=== PATIENT | female | born 1955 | race Two or more races ===

== ENCOUNTER 2019-09-07 17:48 | Emergency (ER) | payer OTHER ==
[~2019-09-07] VITALS: Ht 162.6 cm; Wt 52.6 kg
[2019-09-07 18:57] LABS: BASOPHILS # (AUTO) 0.04 x10^3/uL (0-0.1); BASOPHILS % (AUTO) 1 % (0-1); EOSINOPHILS % (AUTO) 6 % (1-7); LYMPHOCYTES # (AUTO) 1.82 x10^3/uL (1-3.4); LYMPHOCYTES % (AUTO) 34 % (22-44); MD NO; MEAN CORPUSCULAR HEMOGLOBIN 31.2 pg (27.0-34.8); MEAN CORPUSCULAR HGB CONC 33.2 g/dL (32.4-35.8); MEAN CORPUSCULAR VOLUME 93.8 fL (80-100); MEAN PLATELET VOLUME 7.2 fL (7.4-10.4); MONOCYTES # (AUTO) 0.41 x10^3/uL (0.2-0.8); MONOCYTES % (AUTO) 8 % (2-9); NEUTROPHILS # (AUTO) 2.87 x10^3/uL (1.8-6.8); NEUTROPHILS % (AUTO) 53 % (42-75); PLATELET COUNT 292 x10^3/uL (130-400); RED BLOOD COUNT 3.93 x10^6/uL (3.82-5.3); RED CELL DISTRIBUTION WIDTH 12.7 % (9.6-15.2)
[2019-09-07 18:58] LABS: ALBUMIN 3.4 g/dL (3.4-5.0); ANION GAP 6 mmol/L (5-15); CALCIUM 8.7 mg/dL (8.5-10.1); CHLORIDE 98 mmol/L (98-107); CREATININE 0.63 mg/dL (0.55-1.02)
--- NOTE | 2019-09-07 19:00 | NUR ---
to ct scan
[2019-09-07] MEDS ORDERED: SODIUM CHLORIDE 0.9% 1,000ML IVBOLUS ONE (20:00)
[2019-09-07] MEDS ORDERED: SODIUM CHLORIDE FLUSH 10ML SYR IVF ONE (20:00)
[2019-09-07 20:33] VITALS: BP 143/46
--- NOTE | 2019-09-07 20:34 | NUR ---
1l ns complete Patient remains with neck pain VSS on hall monitor Provider made aware
[2019-09-07] MEDS ORDERED: IBUPROFEN 200 MG TABLET ONE (20:59)
[2019-09-07] MEDS ORDERED: IBUPROFEN 200 MG TABLET PO ONE (21:00)
== END 2019-09-07 21:21 | disposition home or self-care (01) ==
LOC: ED 19:28
DX: E87.1 Hypo-osmolality and hyponatremia (principal); M54.2 Cervicalgia; E11.9 Type 2 diabetes mellitus without complications
CPT/HCPCS: 36415; 70450; 80048; 82040; 85025; 99284; J7030

== ENCOUNTER 2020-10-02 08:01 | Emergency (ER) | payer OTHER ==
[~2020-10-02] VITALS: Ht 154.9 cm; Wt 51.9 kg
--- NOTE | 2020-10-02 08:34 | NUR ---
pa at bs for eval
--- NOTE | 2020-10-02 08:54 | NUR ---
PIV PLACED, LABS DRAWN, FLUIDS HUNG. PT RESTING ON GURNEY, NADN/VSS. CALL LIGHT WITHIN REACH. BED IN LOWEST POSITION, BED RAILS UP X2
[2020-10-02] MEDS ORDERED: SODIUM CHLORIDE 0.9% 1,000ML IVBOLUS ONE (09:00)
[2020-10-02 09:09] LABS: BASOPHILS % (AUTO) 1 % (0-1); EOSINOPHILS % (AUTO) 1 % (1-7); LYMPHOCYTES % (AUTO) 30 % (22-44); MEAN CORPUSCULAR HEMOGLOBIN 30.8 pg (27.0-34.8); MEAN CORPUSCULAR HGB CONC 34.5 g/dL (32.4-35.8); MEAN PLATELET VOLUME 7.4 fL (7.4-10.4); MONOCYTES % (AUTO) 6 % (2-9); NEUTROPHILS % (AUTO) 62 % (42-75); PLATELET COUNT 290 x10^3/uL (130-400); RED BLOOD COUNT 4.39 x10^6/uL (3.82-5.3); RED CELL DISTRIBUTION WIDTH 13.2 % (9.6-15.2)
[2020-10-02 09:17] LABS: MICROSCOPIC NOT IND
[2020-10-02 09:18] LABS: ALANINE AMINOTRANSFERASE 15 U/L (12-78); ALBUMIN 3.7 g/dL (3.4-5.0); ANION GAP 6 mmol/L (5-15); CALCIUM 9.3 mg/dL (8.5-10.1); CHLORIDE 101 mmol/L (98-107); CREATININE 0.66 mg/dL (0.55-1.02)
[2020-10-02 09:20] LABS: ALKALINE PHOSPHATASE 87 U/L (45-117); BILIRUBIN,TOTAL 0.5 mg/dL (0.2-1.0); TOTAL PROTEIN 8.6 g/dL (6.4-8.2)
--- NOTE | 2020-10-02 09:39 | NUR ---
Patient is resting comfortably in bed. Bed in lowest, rails engaged, call light on lap. Vital Signs within normal limits. WCTM.
--- NOTE | 2020-10-02 09:50 | NUR ---
Report received from ELENO Jacobsen and care assumed. Pt sitting in bed with call light in reach and VSS. NAD noted at this time.
--- NOTE | 2020-10-02 09:55 | NUR ---
REPORT TO ELENO WESTON
--- NOTE | 2020-10-02 10:05 | NUR ---
Pt assessment completed. Pt assisted to restroom and back. Pt notified of ED process from this point.
--- NOTE | 2020-10-02 10:17 | NUR ---
Chart already marked for recheck by . Pt states he has not been in as yet. Lab results reviewed.
--- NOTE | 2020-10-02 10:17 | NUR ---
Kyrie wilcox in ED - 10/02/20 at 1018 by THERESA Repeat FSBS assessed to be 315. MD notified.
--- NOTE | 2020-10-02 11:01 | NUR ---
Pt reassessed and new warm blanket provided. Remains waiting for MD recheck.
[2020-10-02 11:53] VITALS: BP 132/74
== END 2020-10-02 11:55 | disposition home or self-care (01) ==
LOC: ED 11:45
DX: E87.1 Hypo-osmolality and hyponatremia (principal); E11.9 Type 2 diabetes mellitus without complications
CPT/HCPCS: 36415; 80053; 81003; 82962; 85025; 93005; 96360; 99285; J7030